=== PATIENT | male | born 1985 | race Caucasian/White ===

== ENCOUNTER 2017-11-27 13:59 | Emergency (ER) | payer SELFPAY ==
[2017-11-27 14:06] VITALS: BP 131/79; PULSE 84; RESP 16; TEMP 98.5; O2SAT 100
== END 2017-11-27 15:20 | disposition home or self-care (01) | DRG 563 ==
LOC: ED 13:59
DX: S62.636A Displaced fracture of distal phalanx of right little finger, initial encounter for closed fracture (principal)
CPT/HCPCS: 73140; 99282; 99283